=== PATIENT | female | born 2000 | race Caucasian/White ===

== ENCOUNTER 2022-02-24 22:12 | Emergency (ER) | payer OTHER ==
[~2022-02-24] VITALS: Ht 162.6 cm; Wt 93.4 kg
[~2022-02-24 22:12] MED LIST: ACETAMINOPHEN-1 EAC1 PO
[2022-02-25] MEDS ORDERED: ONDANSETRON ODT4 MG SL (00:09)
== END 2022-02-25 00:17 | disposition home or self-care (01) ==
LOC: ED 22:12
DX: O99.891 Other specified diseases and conditions complicating pregnancy (principal); R10.84 Generalized abdominal pain; Z3A.01 Less than 8 weeks gestation of pregnancy
CPT/HCPCS: 36415; 76705; 76801; 76817; 80053; 81001; 83690; 83735; 84702; 84703; 85025; 96374; 99284-25; A9270; J2405; J7030